=== PATIENT | male | born 2000 | race Caucasian/White ===

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

== ENCOUNTER → 2021-03-16 10:15 | Outpatient (CLI) | payer BC, SELFPAY ==
--- NOTE | ~2021-03-16 | US_ITS ---
EXAMINATION: US thyroid EXAM DATE: 03/16/2021 10:38 INDICATION: Thyroid Nodule. TECHNIQUE: Multiple grayscale and Doppler images of the thyroid were obtained (by a technologist who performed the scan) and subsequently reviewed. Individual nodules and recommendations may be reporte d in accordance with TI-RADS system as designated by the 2017 ACR White Paper TI-RADS committee. Comp shahram is made to prior examination from 08/26/2019. FINDINGS: The right thyroid lobe measures 5.7 x 2.5 x 1.6 cm, the left measuring 2.6 x 2.5 x 2.1 cm. Moderately diffusely heterogeneous thyroid echogenicity with scattered thyroid nodules. There is diffusely hype rvascular thyroid parenchyma. Largest nodule is in the right thyroid lobe measuring 2.6 x 2.5 x 2.1 cm, predominantly solid (2 poin ts), hypoechoic (2 points), wider than tall, smooth well defined margin, without echogenic foci, liberty gory TR4 for this nodule. Dimensions on ultrasound 2018 were 2.8 x 2.0 x 2.2 cm, no significant inter kristina change accounting for differences in technique. Reportedly this nodule was also previously biopsi ed, benign. The other nodules are subcentimeter with a nodule in the left lobe which could be an intraparotid lym ph node given morphology, measuring 6 x 5 x 5 mm (previously measured at 6 x 3 x 3. Another isoechoic left thyroid lobe nodule is unchanged at 9 mm greatest dimension. IMPRESSION: Stable multinodular goiter. Patient can return to clinical follow-up and obtaining repeat ultrasound if additional palpable abnormality identified. Reviewed, dictated and finalized at location B. IMPRESSION: Stable multinodular goiter. Patient can return to clinical follow-u p and obtaining repeat ultrasound if additional palpable abnormality identified .
== END ==
DX: E04.2 Nontoxic multinodular goiter (principal)
CPT/HCPCS: 76536

== ENCOUNTER → 2022-08-26 13:48 | Outpatient (CLI) | payer BC, SELFPAY ==
--- NOTE | ~2022-08-26 | US_ITS ---
EXAMINATION: US thyroid DATE: 08/26/2022 14:08 INDICATION: Thyroid nodule. TECHNIQUE: Multiple ultrasound images of the thyroid were obtained. COMPARISON: Ultrasound 03/16/2021, 08/26/2019 FINDINGS: The right thyroid lobe measures 6.1 x 2.6 x 1.6 cm. The left thyroid lobe measures 5.4 x 1.3 x 1.6 c m. In the right thyroid lobe, there is a 3.2 cm mixed cystic and solid, hypoechoic, wider than tall nodule with smooth margin without echogenic foci (TI-RADS TR4), stable from 08/26/19. According to th e patient, biopsy in 2019 was benign. In the left thyroid lobe, there is a 11 mm mixed cystic and obdulia id, isoechoic nodule with smooth margin without echogenic foci (TR2). In the left thyroid lobe, there is a 10 mm solid, isoechoic, wider than tall nodule with ill-defined margin without echogenic foci ( TR3). IMPRESSION: 1. Multinodular goiter, likely not clinically significant. No follow-up is needed. Reviewed, dictated and finalized at location A. [employer] IMPRESSION: 1. Multinodular goiter, likely not clinically significant. No follow-up is need ed.
== END ==
PROVIDERS: Visit Provider Surgery
DX: E04.2 Nontoxic multinodular goiter (principal)
CPT/HCPCS: 76536

== ENCOUNTER 2024-04-02 09:59 | Outpatient (CLI) | payer BC, SELFPAY ==
--- NOTE | ~2024-04-02 | US_ITS ---
EXAMINATION: US thyroid DATE: 04/02/2024 10:36 INDICATION: Thyroid nodule. TECHNIQUE: Multiple ultrasound images of the thyroid were obtained. COMPARISON: Ultrasound 08/26/2022, 08/26/2019 FINDINGS: The right thyroid lobe measures 6.2 x 2.5 x 1.6 cm. The left thyroid lobe measures 5.0 x 1.4 x 2.0 c m. In the right thyroid lobe, there is a 2.9 cm mixed cystic and solid, hypoechoic, wider than tall nodule with smooth margin without echogenic foci (TI-RADS TR3), stable from 08/26/19. According to e patient, biopsy in 2019 was benign. In the left thyroid lobe, there is a 17 mm mixed cystic and obdulia id, isoechoic, wider than tall nodule with smooth margin without echogenic foci (TR2). In the left th yroid lobe, there is a 9 mm predominantly solid, isoechoic, wider than tall nodule with ill-defined m argin without echogenic foci (TR4). IMPRESSION: 1. Multinodular goiter, likely not clinically significant. No follow-up is needed. Reviewed, dictated and finalized at location E. IMPRESSION: 1. Multinodular goiter, likely not clinically significant. No follow-up is need ed.
== END 2024-04-02 10:00 ==
DX: E04.2 Nontoxic multinodular goiter (principal)
CPT/HCPCS: 76536